=== PATIENT | male | born 1980 | race Caucasian/White ===

== ENCOUNTER 2024-01-27 09:34 | Emergency (ER) | payer SELFPAY ==
[2024-01-27] VITALS (7 sets, daily range): BP systolic 113–123; BP diastolic 69–79; PULSE 80–99; RESP 18–19; TEMP 36.7; O2SAT 93–99; BMI 34.4
--- NOTE | 2024-01-27 09:33 | ECG_ITS ---
APPROVED REPORT Exam: Resting ECG HR:82 bpm ECG Measurements Heart Rate 82 AXES TX 144 P -3 QRSd 91 QRS -2 QT 356 T 61 QTc 394 Conclusion SINUS RHYTHM POSSIBLE RIGHT VENTRICULAR CONDUCTION DELAY [RSR (QR) IN V1/V2] BORDERLINE ECG UNCONFIRMED REPORT Electronically signed by : NICO SCHROEDER, 01/27/2024 15:04:06
[2024-01-27 10:05] LABS: Basophils # 0.1 K/mm3 (0-0.2); Basophils % 0.3 % (0.1-2.0); Chloride 105 mmol/L (98-107); Eosinophils # 0.1 K/mm3 (0.0-0.4); Eosinophils % 0.4 % (0.1-12.0); Hematocrit 48.1 % (42.0-52.0); Lymphocytes # 1.7 K/mm3 (0.7-4.5); Lymphocytes % 10.2 % (10-50); Mean Corpuscular HGB Conc 33.2 g/dL (31.8-35.4); Mean Corpuscular Hemoglobin 29.5 pg (27.0-31.2); Mean Corpuscular Volume 88.8 fl (80-94); Mean Platelet Volume 7.9 fl (7.4-10.4); Monocytes # 0.7 K/mm3 (0.1-1.0); Neutrophils # 14.2 K/mm3 (1.8-7.8); Neutrophils % 85.2 % (37.0-80.0); Platelet Count 236 K/mm3 (142-424); Potassium 4.2 mmoL/L (3.5-5.1); Red Blood Count 5.41 M/mm3 (4.60-6.20); Red Cell Distribution Width 15.1 % (11.5-17.5); Sodium 138 mmol/L (136-145); White Blood Count 16.7 K/mm3 (4.8-10.8)
[2024-01-27 10:08] LABS: Alanine Aminotransferase 42 U/L (12-78); Albumin Level 4.5 g/dl (3.5-5.0); Albumin/Globulin Ratio 1.4 (1.1-1.8); Alkaline Phosphatase 96 U/L (38-126); Anion Gap 14.2 mEq/L (5-15); Aspartate Amino Transferase 43 U/L (17-59); Blood Urea Nitrogen 13 mg/dl (9-20); Calcium 9.3 mg/dl (8.4-10.2); Carbon Dioxide 23 mmol/L (22.0-30.0); Creatinine Clearance Estimated 146 mL/min (50-200); Estimated Glomerular Filt Rate 91 ml/min (>60); GFR (African American) 110 ML/MIN (>60); Globulin 3.3 g/dL (1.3-3.2); Glucose 124 mg/dl (74-100); Lipase 57 U/L (23-300); Total Protein,Serum 7.8 g/dl (6.3-8.2)
[2024-01-27 10:18] LABS: MANUAL DIFFERENTIAL MANUAL DIFFERENTIAL (MANUAL DIFF)
--- NOTE | 2024-01-27 10:21 | ED_ITS ---
Discharge Plan Disposition Patient Disposition: Home, Self-Care Condition: Good Prescriptions Prescriptions: New ondansetron 4 mg tablet,disintegrating 4 mg PO Q6 PRN (Reason: nausea and vomiting) 4 Days Qty: 16 0RF ibuprofen [IBU] 800 mg tablet 800 mg PO Q8H PRN (Reason: pain) 5 Days Qty: 15 0RF dicyclomine 20 mg tablet 20 mg PO BID PRN (Reason: abdominal pain) 3 Days Qty: 10 0RF No Action cephalexin 500 MG capsule 500 mg PO Q6H 10 Days Qty: 40 0RF hydrocodone-acetaminophen 1 TAB tablet 1 tab PO Q6HP PRN (Reason: Pain) Qty: 10 0RF metronidazole 500 MG tablet 500 mg PO TID Qty: 30 0RF ciprofloxacin HCl 500 MG tablet 500 mg PO BID Qty: 20 0RF Activity Restrictions/Add. Instructions Additional Instructions/Restrictions: You have been evaluated in the ED for your complaints. You may follow-up with your PCP in the next 3 to 5 days. Please return to ED for any new or worsening symptoms. I have written for Zofran to assist with your nausea. Bentyl to assist with abdominal cramping. You may also take ibuprofen to assist with pain as needed. Please drink plenty of fluids over the next several days. Clinical Impressions Clinical Impression: Gastroenteritis, Abdominal pain Instructions Patient Instructions: DI for Viral Gastroenteritis -- Adult, DI for Acute Abdominal Pain, Gastroenteritis Diet Discharge ED Provider: Juan Daniel Burkett Adult HPI General Chief complaint: Abdominal Pain Stated complaint: ABD pain/diarrhea/diaphoretic Time Seen by Provider: 01/27/24 10:21 Mode of Arrival: EMS Source of Information: Patient Limitations: No Limitations Description of Symptoms (Recalled from ER Triage Doc. by RN): Patient reports severe right sided abdominal pain since yesterday. Also reports diarrhea. History of Present Illness HPI narrative: 43-year-old male with past medical history significant for diverticulitis, hernia, presents today for evaluation concerning right upper quadrant and right lower quadrant abdominal pain that has been worsening over the past day. Denies any chest pain or shortness of breath. Denies any nausea or vomiting. Has also been having diarrhea. No further complaints. Related Data Previous Rx's Medication Instructions Recorded cephalexin 500 mg capsule 500 mg PO Q6H 10 days #40 caps 07/09/19 ciprofloxacin HCl 500 mg tablet 500 mg PO BID #20 tabs 10/17/19 hydrocodone 5 mg-acetaminophen 325 1 tab PO Q6HP PRN Pain #10 tabs 10/17/19 mg tablet metronidazole 500 mg tablet 500 mg PO TID #30 tabs 10/17/19 dicyclomine 20 mg tablet 20 mg PO BID PRN abdominal pain 3 01/27/24 days #10 tabs ibuprofen 800 mg tablet (IBU) 800 mg PO Q8H PRN pain 5 days #15 01/27/24 tabs ondansetron 4 mg disintegrating 4 mg PO Q6 PRN nausea and vomiting 01/27/24 tablet 4 days #16 tabs Allergies Allergy/AdvReac Type Severity Reaction Status Date / Time No Known Allergies Allergy Verified 06/22/19 05:54 [facility] Disclaimer: The information contained in this section may have been updated after the patient was seen, as this information can be updated by other users. Social History Smoking Status: Unknown if ever smoked second hand exposure: Yes alcohol intake: never current occupational status: employed Travel in the last 8 weeks: None housing: house current occupational exposures/hazards: No caffeine: Yes ROS Obtained: Yes All systems reviewed & no additional complaints except as documented Physical Exam General General appearance: alert and in no apparent distress Head Head exam: atraumatic and normocephalic Eye Eye exam: Present normal appearance, PERRL and EOMI ENT ENT exam: Present normal oropharynx and mucous membranes moist Neck Neck exam: Present full ROM; Absent meningismus Respiratory Respiratory exam: Absent respiratory distress, wheezes, stridor or accessory muscle use Cardiovascular Cardiovascular exam: Present normal rhythm Abdominal Exam Abdominal exam: Present soft and tenderness; Absent distention, guarding, rebound or rigidity Abdominal tenderness: Present RUQ and RLQ Neurological Exam Neurological exam: Present alert, oriented X3 and CN II-XII intact; Absent motor sensory deficit Psychiatric Psychiatric exam: Present normal affect and normal mood Skin Skin exam: Present warm and dry Medical Decision Making Medical Records Medical records reviewed: Yes I reviewed the patient's medical records. Karson Inquiry Pt receiving controlled substance: No Karson was queried for this patient: No Vital Signs: 01/27/24 09:34 01/27/24 10:00 01/27/24 10:30 Temperature 98.0 F Temperature Source Oral Pulse Rate 82 80 Pulse Rate [Radial] 83 Respiratory Rate 18 Blood Pressure 115/77 113/75 Blood Pressure [Right Arm] 115/77 Blood Pressure Mean 85 84 Blood Pressure Mean [Right Arm] 89 Blood Pressure Source [Right Arm] Automatic Cuff Blood Pressure Position [Right Arm] Sitting 02 Sat by Pulse Oximetry 99 93 L 98 Oxygen Delivery Method Room Air 01/27/24 11:30 01/27/24 12:00 01/27/24 12:30 Temperature Temperature Source Pulse Rate 90 99 H 85 Pulse Rate [Radial] Respiratory Rate Blood Pressure 119/69 123/72 120/79 Blood Pressure [Right Arm] Blood Pressure Mean 85 87 91 Blood Pressure Mean [Right Arm] Blood Pressure Source [Right Arm] Blood Pressure Position [Right Arm] 02 Sat by Pulse Oximetry 95 95 94 L Oxygen Delivery Method Lab Data Lab Results 01/27/24 09:20: WBC 16.7 H, RBC 5.41, Hgb 16.0, Hct 48.1, MCV 88.8, MCH 29.5, MCHC 33.2, RDW 15.1, Plt Count 236, MPV 7.9, Neut % (Auto) 85.2 H, Lymph % (Auto) 10.2, [place] % (Auto) 4.0, Eos % (Auto) 0.4, Baso % (Auto) 0.3, Neut # (Auto) 14.2 H, Lymph # (Auto) 1.7, [place] # (Auto) 0.7, Eos # (Auto) 0.1, Baso # (Auto) 0.1, Total Counted 100, Neutrophils % (Manual) 74, Lymphocytes % (Manual) 24, Monocytes % (Manual) 2, Platelet Estimate Normal, RBC Morphology Normal, Sodium 138, Potassium 4.2, Chloride 105, Carbon Dioxide 23, Anion Gap 14.2, BUN 13, Creatinine 0.90, Estimated Creat Clear 146, Estimated GFR 91, Est GFR ( Amer) 110, Glucose 124 H, Lactate 2.0, Calcium 9.3, Total Bilirubin 1.0, AST 43, ALT 42, Alkaline Phosphatase 96, Troponin I < 0.01, Total Protein 7.8, Albumin 4.5, Globulin 3.3 H, Albumin/Globulin Ratio 1.4, Lipase 57 01/27/24 09:20 01/27/24 09:20 Orders (Tests/Meds): ED MEDICATIONS Generic Name Dose Route Start Last Admin Trade Name Freq PRN Reason Stop Dose Admin Ondansetron HCl 4 mg 01/27/24 13:28 Ondansetron 4mg/2ml Vial IV 01/27/24 13:29 ONCE ONE Discontinued Medications Generic Name Dose Route Start Last Admin Trade Name Patrick PRN Reason Stop Dose Admin Lactated Ringer's 500 mls @ 999 mls/hr 01/27/24 10:34 01/27/24 10:55 Lactated Ringer's 1000 Ml Bag IV 01/27/24 11:04 999 mls/hr .Q31M ONE Administration Iopamidol 75 ml 01/27/24 11:07 01/27/24 11:07 Iopamidol-370 (76%);100ml Bottle IV 01/27/24 11:08 75 ml ONCE ONE Administration Morphine Sulfate 4 mg 01/27/24 10:34 01/27/24 10:53 Morphine 4mg/Ml Syringe IV 01/27/24 10:35 4 mg ONCE ONE Administration Ondansetron HCl 4 mg 01/27/24 10:34 01/27/24 10:53 Ondansetron 4mg/2ml Vial IV 01/27/24 10:35 4 mg ONCE ONE Administration Sodium Chloride 10 ml 01/27/24 11:07 01/27/24 11:07 Sodium Chloride 0.9% 10ml Syr (Rad Only) IV 01/27/24 11:08 10 ml ONCE ONE Administration ORDERS Category Date Time Status CT abdomen pelvis w con Stat Cat Scan 01/27/24 10:34 Completed Complete Blood Count Auto Diff Stat Lab 01/27/24 09:20 Completed Comprehensive Metabolic Panel Stat Lab 01/27/24 09:20 Completed Lactic Acid Stat Lab 01/27/24 09:20 Completed Lipase Stat Lab 01/27/24 09:20 Completed Troponin I Stat Lab 01/27/24 09:20 Completed Medical Decision Narrative: 43-year-old male with past medical history significant for diverticulitis, hernia, presents today for evaluation concerning right upper quadrant and right lower quadrant abdominal pain that has been worsening over the past day. Denies any chest pain or shortness of breath. Denies any nausea or vomiting. Has also been having diarrhea. On assessment he was medically stable and mild distress secondary to his pain. He had tenderness in the right upper and right lower quadrants. Without rebound or guarding. Chest clear to auscultation bilaterally. Differential diagnosis includes not limited to cholecystitis, cholelithiasis, appendicitis, gastroenteritis, others. EKG was personally interpreted by me and was remarkable for normal sinus rhythm with a rate of 82 bpm. No ischemic changes. His lab work today is remarkable for a WBC of 16.7. No transaminitis on CMP. Alkaline phosphatase within range. Initial troponin less than 0.01. Other labs nonactionable. Patient did receive a fluid bolus and also had a CT scan of the abdomen pelvis with contrast revealed findings concerning for enteritis. Patient remains medically stable and in no acute distress on reassessment. I did give him with Zofran to assist with his nausea and he also received a p.o. challenge and tolerated without difficulty. Will send patient home with Zofran, dicyclomine and ibuprofen to assist with his symptoms. Also instructed patient concerning fluid intake. He verbalized understanding and agreed with plan. Provided with return precautions. Subsequent discharged home medically stable in no acute distress. Critical Care Critical Care Time Critical Care Time: No
[2024-01-27 10:24] LABS: Troponin I < 0.01 ng/ml (0.00-0.034)
--- NOTE | 2024-01-27 10:34 | CT_ITS ---
FINAL REPORT TECHNIQUE: Postcontrast axial images through the abdomen and pelvis were performed. This study was performed with techniques to keep radiation doses as low as reasonably achievable, (ALARA). Individualized dose reduction techniques using automated exposure control or adjustment of mA and/or kV according to the patient's size were employed. CLINICAL HISTORY: RLQ and RUQ pain FINDINGS: Abdomen: The lung bases are clear. The liver is normal in size and attenuation. The spleen is unremarkable. Left adrenal nodule measures 17 mm, favor an adenoma. The pancreas is unremarkable. The kidneys enhance appropriately. The aorta is normal in caliber. No free fluid or adenopathy is identified. No findings for mechanical bowel obstruction are identified. Pelvis: The appendix is not identified. There are multiple fluid-filled large and small bowel loops which are nonspecific, may represent enteritis. The urinary bladder is unremarkable. No free fluid, free air, abscess or adenopathy is identified. IMPRESSION: Findings may represent enteritis. Reviewed, Interpreted and Dictated by Jovi Mac III, MD Transcribed by Sarah Garcia Authenticated and [facility]
[2024-01-27] MEDS: ONDANSETRON 4MG/2ML VIAL 4 MG IV ×2 (10:53→13:32)
[2024-01-27] MEDS: MORPHINE 4MG/ML SYRINGE 4 MG IV (10:53)
[2024-01-27] MEDS: LACTATED RINGERS 1000ML 500 ML 999 ML IV (10:55)
[2024-01-27 11:03] LABS: Lymphocytes % 24 % (10-50); Monocytes % 2 % (2-9); Neutrophils % 74 % (42-76); Platelet Estimate Normal; RBC Morphology Normal; Total Cells Counted 100
[2024-01-27] MEDS: IOPAMIDOL-370 (76%);100ML BOTTLE 75 ML IV (11:07)
[2024-01-27] MEDS: SODIUM CHLORIDE 0.9% 10ML SYR (RAD ONLY) 10 ML IV (11:07)
== END 2024-01-27 14:07 | disposition home or self-care (01) ==
PROVIDERS: Emergency Provider Emergency Medicine
DX: R10.11 Right upper quadrant pain (principal); R10.31 Right lower quadrant pain; K52.9 Noninfective gastroenteritis and colitis, unspecified; D72.829 Elevated white blood cell count, unspecified; Z87.19 Personal history of other diseases of the digestive system
CPT/HCPCS: 74177; 80053; 83605; 83690; 84484; 85007; 85025; 93005; 96374; 96375; 96376; 99285; J2405; Q9967

== ENCOUNTER 2024-03-21 10:37 | Emergency (ER) | payer OTHER, SELFPAY ==
[2024-03-21 10:38] VITALS: BP 116/80; PULSE 88; RESP 13; TEMP 36.8; O2SAT 95; BMI 35.2
--- NOTE | 2024-03-21 10:44 | HMH.EDGENADL ---
Discharge Plan Disposition Patient Disposition: Home, Self-Care Condition: Good Chief Complaint: Wound/Laceration Prescriptions Prescriptions: No Action ondansetron 4 mg tablet,disintegrating 4 mg PO Q6 PRN (Reason: nausea and vomiting) 4 Days Qty: 16 0RF ibuprofen [IBU] 800 mg tablet 800 mg PO Q8H PRN (Reason: pain) 5 Days Qty: 15 0RF dicyclomine 20 mg tablet 20 mg PO BID PRN (Reason: abdominal pain) 3 Days Qty: 10 0RF Referrals Follow up/Referrals: Provider,Referral, MD [Primary Care Provider] - See instructions Activity Restrictions/Add. Instructions Additional Instructions/Restrictions: You have been evaluated in the ED for your complaints. You may follow-up with your PCP in the next 3 to 5 days. Please return to ED for any new or worsening symptoms. Please do not get Dermabond wet over the next few days as your wound heals. Clinical Impressions Clinical Impression: Laceration of finger, middle Instructions Patient Instructions: DI for Laceration Repair Discharge ED Provider: Juan Daniel Burkett General Adult HPI General Chief complaint: Wound/Laceration Stated complaint: WC 03/21/27 10:00, left finger inj Time Seen by Provider: 03/21/24 10:44 History of Present Illness HPI narrative: 43-year-old male with past medical history significant for diverticulitis, presents today for evaluation concerning left index finger laceration that was sustained prior to arrival. 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 Denies any other associated injuries. Tetanus is not up-to-date. No further complaints. Related Data Previous Rx's Medication Instructions Recorded dicyclomine 20 mg tablet 20 mg PO BID PRN abdominal pain 3 01/27/24 days #10 tabs ibuprofen 800 mg tablet (IBU) 800 mg PO Q8H PRN pain 5 days #15 01/27/24 tabs ondansetron 4 mg disintegrating 4 mg PO Q6 PRN nausea and vomiting 01/27/24 tablet 4 days #16 tabs Allergies Allergy/AdvReac Type Severity Reaction Status Date / Time No Known Allergies Allergy Verified 06/22/19 05:54 [facility] Disclaimer: The information contained in this section may have been updated after the patient was seen, as this information can be updated by other users. Social History Smoking Status: Unknown if ever smoked second hand exposure: Yes alcohol intake: never current occupational status: employed Travel in the last 8 weeks: None housing: house current occupational exposures/hazards: No caffeine: Yes ROS Obtained: Yes All systems reviewed & no additional complaints except as documented Physical Exam General General appearance: alert and in no apparent distress Head Head exam: atraumatic and normocephalic Eye Eye exam: Present normal appearance, PERRL and EOMI ENT ENT exam: Present normal oropharynx and mucous membranes moist Neck Neck exam: Present full ROM; Absent meningismus Respiratory Respiratory exam: Absent respiratory distress, wheezes, stridor or accessory muscle use Cardiovascular Cardiovascular exam: Present normal rhythm Abdominal Exam Abdominal exam: Present soft; Absent distention, tenderness, guarding, rebound or rigidity Extremities Exam Extremities exam: Present full ROM, tenderness and other (There is a 1 cm laceration to the dorsal aspect of the left middle finger with minimal active bleeding. Sensation intact. Palpable radial pulse. Full range of motion.) Neurological Exam Neurological exam: Present alert, oriented X3 and CN II-XII intact; Absent motor sensory deficit Psychiatric Psychiatric exam: Present normal affect and normal mood Skin Skin exam: Present warm and dry Medical Decision Making Medical Records Medical records reviewed: Yes I reviewed the patient's medical records. Karson Inquiry Pt receiving controlled substance: No Karson was queried for this patient: No Medical Decision Narrative: 43-year-old male with past medical history significant for diverticulitis, presents today for evaluation concerning left index finger laceration that was sustained prior to arrival. 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 Denies any other associated injuries. Tetanus is not up-to-date. On assessment, the patient is medically stable and in no acute distress. Afebrile. He did have a 1 cm laceration to the dorsal aspect of the left middle finger with minimal active bleeding. Sensation was intact. Full range of motion. Differential diagnoses include not limited to laceration, fracture, among others X-ray imaging was without any acute bony abnormalities on my informal interpretation. Patient was given ibuprofen and his laceration was cleaned and was noted to be more superficial. Dermabond was placed for repair and he tolerated well. Tetanus was updated. I discussed ED workup and results as well as current plan to discharge with supportive care measures. He verbalized understanding and agreement with plan. Provided with return precautions. Subsequently discharged hemodynamically stable and in no acute distress. Critical Care Critical Care Time Critical Care Time: No
--- NOTE | 2024-03-21 10:48 | XR_ITS ---
FINAL REPORT CLINICAL HISTORY: L middle finger laceration done at work today FINDINGS: Left hand Two views were obtained. There is no acute fracture or dislocation. The joint spaces appear normal. No soft tissue abnormality is identified. IMPRESSION: No acute process. Reviewed, Interpreted and Dictated by Jovi Mac III, MD Transcribed by Sarah Garcia Authenticated and [facility]
[2024-03-21 10:55] VITALS: PULSE 83; O2SAT 93
[2024-03-21] MEDS: TET/DIPHTH/PERT-ADULT 0.5ML SYRINGE 0.5 ML IM (10:58)
[2024-03-21] MEDS: IBUPROFEN 600 MG TABLET PO (11:25)
[2024-03-21 11:35] VITALS: BP 135/84; PULSE 71; RESP 13; TEMP 36.8; O2SAT 99
== END 2024-03-21 11:36 | disposition home or self-care (01) ==
PROVIDERS: Emergency Provider Emergency Medicine
DX: S61.211A Laceration without foreign body of left index finger without damage to nail, initial encounter (principal); W26.8XXA Contact with other sharp object(s), not elsewhere classified, initial encounter; Z23 Encounter for immunization
CPT/HCPCS: 12001; 73120; 90471; 90715; 99283